=== PATIENT | female | born 1965 | race Caucasian/White ===

== ENCOUNTER 2016-11-06 04:30 | Emergency (ER) | payer SELFPAY ==
[~2016-11-06] VITALS: Ht 165.1 cm; Wt 75.0 kg
[2016-11-06 04:38] VITALS: BP 118/87; PULSE 97; RESP 20; TEMP 98; O2SAT 98
[2016-11-06] MEDS ORDERED: IBUP800T23 PO (04:56)
[2016-11-06 04:57] VITALS: BP 118/87; PULSE 97; RESP 18; TEMP 98; O2SAT 98
[2016-11-06] MEDS ORDERED: SODIUM CHLOR 0.9% 1000 ML INJ 1,000 ML IV ONE (05:15)
[2016-11-06] MEDS ORDERED: METOCLOPRAMIDE HCL 10 MG/2 ML VIAL IV PUSH ONE (05:15)
[2016-11-06] MEDS ORDERED: KETOROLAC TROMETHAMINE 30 MG/ML (IVP) VIAL IV PUSH ONE (05:15)
--- NOTE | 2016-11-06 05:17 | PD ---
HPI Chief Complaint: GI Complaint Time Seen by Provider: 05:06 Travel History International Travel<30 days: No Contact w/Intl Traveler<30days: No Traveled to known affect area: No History of Present Illness HPI 50-year-old female presents to the emergency department for one day of abdominal bloating and vomiting. No hematemesis no coffee-ground emesis no bilious emesis also no melena or hematochezia. Patient is status post abdominoplasty and hysterectomy. Patient rates discomfort as moderate to severe. Patient states she has irritable bowel syndrome and has had colonoscopy and upper endoscopy which revealed no source of her recurrent bloating. Patient states she is unable to tolerate oral hydration at this time. Patient is managed by a GI specialist in [place]. Patient reports that she is here due to working for the [employer]. Patient does not report any chest pain pleuritic pain or shortness of breath. Patient reports that she cannot take a complete breath because of her abdominal pain. Patient rates her pain 5/ 10 in intensity. No dietary indiscretion, no foreign travel, and no well water ingestion. PFSH Past Medical History Narrative Medical valvular heart disease, abdominoplasty, hysterectomy, IBS, cholecystectomy; alcohol use; nursing notes reviewed Arthritis: Yes Cardiovascular Problems: Yes (PULMONARY REGURGITATION) Diminished Hearing: No Immunizations Current: Yes Tetanus Vaccination: < 5 Years Influenza Vaccination: No ?: Not Dilation and Curettage (D&C): Yes Tubal Ligation: Yes Past Surgical History Abdominal Surgery: No Section: Yes Cholecystectomy: Yes (2008) Hysterectomy: Yes Social History Alcohol Use: Yes () Tobacco Use: No Substance Use: No Allergies-Medications (Allergen,Severity, Reaction): Coded Allergies: Contrast Media (Verified Allergy, Severe, Hives, 11/06/16) Zofran (Verified Adverse Reaction, Mild, Nausea/Vomiting, 11/06/16) Reported Meds & Prescriptions Reported Meds & Active Scripts Active Reported Ibuprofen 800 Mg Tab 800 Mg PO Q8H PRN Review of Systems Except as stated in HPI: all other systems reviewed are Neg General / Constitutional: No: Fever, Chills HENT: No: Congestion, Nosebleed Cardiovascular: No: Chest Pain or Discomfort Respiratory: No: Shortness of Breath, Orthopnea, Pleuritic Pain Gastrointestinal: Positive: Nausea, Vomiting, Abdominal Pain, No: Diarrhea Genitourinary: No: Dysuria, Flank Pain Musculoskeletal: No: Myalgias, Arthralgias, Edema Skin: No Rash, No Itching Neurologic: No: Weakness Psychiatric: Positive: Anxiety Hematologic/Lymphatic: No: Lymph Node Enlargement Physical Exam Narrative GENERAL: SKIN: Warm and dry. HEAD: Normocephalic. EYES: No scleral icterus. No injection or drainage. NECK: Supple, trachea midline. No JVD or lymphadenopathy. CARDIOVASCULAR: Regular rate and rhythm without murmurs, gallops, or rubs. RESPIRATORY: Breath sounds equal bilaterally. No accessory muscle use. GASTROINTESTINAL: Abdomen soft, non-tender, mildly distended. MUSCULOSKELETAL: No cyanosis, or edema. BACK: Nontender without obvious deformity. No CVA tenderness. Data Data Last Documented VS Vital Signs Date Time Temp Pulse Resp B/P Pulse Ox O2 Delivery O2 Flow Rate FiO2 11/06/16 06:58 18 11/06/16 06:18 83 123/62 100 Room Air 11/06/16 04:57 98.0 Orders Metoclopramide Inj (Reglan Inj) (11/06/16 05:15) Complete Blood Count With Diff (11/06/16 05:06) Comprehensive Metabolic Panel (11/06/16 05:06) Lipase (11/06/16 05:06) Urinalysis - C+S If Indicated (11/06/16 05:06) Ketorolac Inj (Toradol Inj) (11/06/16 05:15) Sodium Chlor 0.9% 1000 Ml Inj (Ns 1000 M (11/06/16 05:15) Ct Abd/Pel W/O Iv Contrast (11/06/16 ) Labs Laboratory Tests Test 11/06/16 05:30 White Blood Count 11.3 TH/MM3 Red Blood Count 4.15 MIL/MM3 Hemoglobin 13.1 GM/DL Hematocrit 37.4 % Mean Corpuscular Volume 90.2 FL Mean Corpuscular Hemoglobin 31.6 PG Mean Corpuscular Hemoglobin 35.0 % Concent Red Cell Distribution Width 12.3 % Platelet Count 246 TH/MM3 Mean Platelet Volume 8.2 FL Neutrophils (%) (Auto) 79.9 % Lymphocytes (%) (Auto) 15.0 % Monocytes (%) (Auto) 4.5 % Eosinophils (%) (Auto) 0.2 % Basophils (%) (Auto) 0.4 % Neutrophils # (Auto) 9.1 TH/MM3 Lymphocytes # (Auto) 1.7 TH/MM3 Monocytes # (Auto) 0.5 TH/MM3 Eosinophils # (Auto) 0.0 TH/MM3 Basophils # (Auto) 0.0 TH/MM3 CBC Comment DIFF FINAL Differential Comment Urine Color YELLOW Urine Turbidity CLEAR Urine pH 5.5 Urine Specific [place] 1.018 Urine Protein TRACE mg/dL Urine Glucose (UA) NEG mg/dL Urine Ketones NEG mg/dL Urine Occult Blood SMALL Urine Nitrite NEG Urine Bilirubin NEG Urine Leukocyte Esterase NEG Urine RBC 3-5 /hpf Urine WBC 3-5 /hpf Urine Squamous Epithelial 6-8 /hpf Cells Urine Bacteria OCC /hpf Microscopic Urinalysis Comment CULT NOT INDICATED Sodium Level 142 MEQ/L Potassium Level 3.9 MEQ/L Chloride Level 105 MEQ/L Carbon Dioxide Level 28.4 MEQ/L Anion Gap 9 MEQ/L Blood Urea Nitrogen 16 MG/DL Creatinine 0.97 MG/DL Estimat Glomerular Filtration 61 ML/MIN Rate Random Glucose 96 MG/DL Calcium Level 8.7 MG/DL Total Bilirubin 0.3 MG/DL Aspartate Amino Transf 13 U/L (AST/SGOT) Alanine Aminotransferase 31 U/L (ALT/SGPT) Alkaline Phosphatase 69 U/L Total Protein 7.7 GM/DL Albumin 3.6 GM/DL Lipase 150 U/L [facility] Medical Decision Making Medical Screen Exam Complete: Yes Emergency Medical Condition: Yes Medical Record Reviewed: Yes Interpretation(s) CBC & BMP Diagram 11/06/16 05:30 Vital Signs Date Time Temp Pulse Resp B/P Pulse Ox O2 Delivery O2 Flow Rate FiO2 11/06/16 06:58 18 11/06/16 06:18 83 18 123/62 100 Room Air 11/06/16 05:00 18 11/06/16 04:57 98.0 97 18 118/87 98 11/06/16 04:38 98.0 97 20 118/87 98 Differential Diagnosis abdominal pain, intestinal colic, bowel obstruction, diverticulitis, pancreatitis, appendicitis, uti, gastroenteritis Narrative Course IV access obtained specimens collected and sent for resulting imaging studies ordered lab values grossly wnl except mild leukocytosis and left shift; CT abd/pel pending; care signed over to Sammie Ye MD Nov 06, 2016 05:17
[2016-11-06 05:35] LABS: BLOOD, URINE SMALL (NEG); GLUCOSE,URINE NEG (NEG); KETONE, URINE NEG (NEG); NITRITE,URINE NEG (NEG); PH, URINE 5.5 (5.0-8.5)
[2016-11-06 05:37] LABS: AUTOMATED NEUTROPHIL # 9.1 TH/MM3 (1.8-7.7); BASOPHIL % 0.4 % (0.0-2.0); EOSINOPHIL % 0.2 % (0.0-4.0); HEMATOCRIT 37.4 % (35.0-46.0); HEMO FLAGS DIFF FINAL; LYMPHOCYTE # 1.7 TH/MM3 (1.0-4.8); MEAN CELL VOLUME 90.2 FL (80.0-100.0); MEAN CORPUSCULAR HEMOGLOBIN 31.6 PG (27.0-34.0); MONO % 4.5 % (0.0-8.0); NEUT % 79.9 % (16.0-70.0); PLATELET COUNT 246 TH/MM3 (150-450); RED BLOOD COUNT 4.15 MIL/MM3 (4.00-5.30); RED CELL DISTRIBUTION WIDTH 12.3 % (11.6-17.2); WHITE BLOOD COUNT 11.3 TH/MM3 (4.0-11.0)
[2016-11-06 05:40] LABS: URINE COLOR YELLOW (YELLW/STRAW)
[2016-11-06 05:41] LABS: BACTERIA, URINE OCC /hpf; COMMENT (UR) CULT NOT INDICATED; CULTURE IF INDICATED CULT NOT INDICATED
[2016-11-06 05:43] LABS: CHLORIDE 105 MEQ/L (98-107); POTASSIUM 3.9 MEQ/L (3.5-5.1); SODIUM (NA) 142 MEQ/L (136-145)
[2016-11-06 05:47] LABS: ANION GAP 9 MEQ/L (5-15); BICARBONATE 28.4 MEQ/L (21.0-32.0); BLOOD UREA NITROGEN 16 MG/DL (7-18)
[2016-11-06 05:50] LABS: ALT (GPT) 31 U/L (10-53); AST (GOT) 13 U/L (15-37); GLOMERULAR FILTRATION RATE 61 ML/MIN (>89)
[2016-11-06 05:51] LABS: TOTAL BILIRUBIN ADULT 0.3 MG/DL (0.2-1.0)
[2016-11-06 05:53] LABS: ALKALINE PHOSPHATASE 69 U/L (45-117)
[2016-11-06 06:18] VITALS: BP 123/62; PULSE 83; RESP 18; O2SAT 100
[2016-11-06 07:15] VITALS: BP 123/66; PULSE 69; RESP 14; O2SAT 100
[2016-11-06] MEDS ORDERED: BENT20TA PO (07:21)
[2016-11-06] MEDS ORDERED: REGL10TA5 PO (07:21)
--- NOTE | 2016-11-06 07:21 | PD ---
Data Data Last Documented VS Vital Signs Date Time Temp Pulse Resp B/P Pulse Ox O2 Delivery O2 Flow Rate FiO2 11/06/16 07:15 69 14 123/66 100 Room Air 11/06/16 04:57 98.0 Orders Metoclopramide Inj (Reglan Inj) (11/06/16 05:15) Complete Blood Count With Diff (11/06/16 05:06) Comprehensive Metabolic Panel (11/06/16 05:06) Lipase (11/06/16 05:06) Urinalysis - C+S If Indicated (11/06/16 05:06) Ketorolac Inj (Toradol Inj) (11/06/16 05:15) Sodium Chlor 0.9% 1000 Ml Inj (Ns 1000 M (11/06/16 05:15) Ct Abd/Pel W/O Iv Contrast (11/06/16 ) Labs Laboratory Tests Test 11/06/16 05:30 White Blood Count 11.3 TH/MM3 Red Blood Count 4.15 MIL/MM3 Hemoglobin 13.1 GM/DL Hematocrit 37.4 % Mean Corpuscular Volume 90.2 FL Mean Corpuscular Hemoglobin 31.6 PG Mean Corpuscular Hemoglobin 35.0 % Concent Red Cell Distribution Width 12.3 % Platelet Count 246 TH/MM3 Mean Platelet Volume 8.2 FL Neutrophils (%) (Auto) 79.9 % Lymphocytes (%) (Auto) 15.0 % Monocytes (%) (Auto) 4.5 % Eosinophils (%) (Auto) 0.2 % Basophils (%) (Auto) 0.4 % Neutrophils # (Auto) 9.1 TH/MM3 Lymphocytes # (Auto) 1.7 TH/MM3 Monocytes # (Auto) 0.5 TH/MM3 Eosinophils # (Auto) 0.0 TH/MM3 Basophils # (Auto) 0.0 TH/MM3 CBC Comment DIFF FINAL Differential Comment Urine Color YELLOW Urine Turbidity CLEAR Urine pH 5.5 Urine Specific [place] 1.018 Urine Protein TRACE mg/dL Urine Glucose (UA) NEG mg/dL Urine Ketones NEG mg/dL Urine Occult Blood SMALL Urine Nitrite NEG Urine Bilirubin NEG Urine Leukocyte Esterase NEG Urine RBC 3-5 /hpf Urine WBC 3-5 /hpf Urine Squamous Epithelial 6-8 /hpf Cells Urine Bacteria OCC /hpf Microscopic Urinalysis Comment CULT NOT INDICATED Sodium Level 142 MEQ/L Potassium Level 3.9 MEQ/L Chloride Level 105 MEQ/L Carbon Dioxide Level 28.4 MEQ/L Anion Gap 9 MEQ/L Blood Urea Nitrogen 16 MG/DL Creatinine 0.97 MG/DL Estimat Glomerular Filtration 61 ML/MIN Rate Random Glucose 96 MG/DL Calcium Level 8.7 MG/DL Total Bilirubin 0.3 MG/DL Aspartate Amino Transf 13 U/L (AST/SGOT) Alanine Aminotransferase 31 U/L (ALT/SGPT) Alkaline Phosphatase 69 U/L Total Protein 7.7 GM/DL Albumin 3.6 GM/DL Lipase 150 U/L [facility] Supervised Visit with ANURAG: No Narrative Course 50-year-old with a history of abdominal bloating, followed by GI in [place] without a clear etiology, presents one day of bloating vomiting and abdominal pain. States the vomiting abdominal pain are not typical for her. She does not typically take any medicines for her belly. She does take baking soda water periodically to help with the bloating. She was initially evaluated by Dr. Lan did sign out to to follow-up on her CT imaging. Abdominal surgical history significant for hysterectomy and cholecystectomy. Repeat exam, patient's sleeping in bed. Labs show: CBC remarkable for minimal leukocytosis. CMP is unremarkable. Lipase is normal. CT abdomen and pelvis: Focal abnormality identified a slight abdominal pain. Ovarian cyst. Moderate to severe hepatic steatosis. FINAL: Patient with abdominal bloating and some vomiting. Labs unremarkable. CT unremarkable. We will plan treatment with Bentyl, Zofran, outpatient follow- up with her big data lead. Diagnosis Primary Impression: Vomiting Additional Impression: Abdominal bloating Additional Instruction: Use Zofran as needed for nausea or vomiting. Use Bentyl as needed for abdominal cramping and bloating. Follow-up with your big data lead when you return home. Return to the emergency department for any worsening pain, vomiting, fevers, or any other new or worsening symptoms. Med/Other Pt SpecificInfo: Prescription(s) given Scripts Dicyclomine (Bentyl)20 Mg Tab20 Mg PO TID PRN (ABDOMINAL CRAMPING) #15 TAB Ref 0 Prov:Scott Arnold MD 11/06/16 Metoclopramide (Reglan)10 Mg Tab10 Mg PO QID PRN (VOMITING) #15 TAB Ref 0 Prov:Scott Arnold MD 11/06/16 Disposition: 01 DISCHARGE HOME Condition: Stable Scott Arnold MD Nov 06, 2016 07:21 Scott Arnold MD Nov 06, 2016 07:21
--- NOTE | 2016-11-06 07:33 | RADHPO ---
EXAM DATE/TIME: 11/06/2016 06:52 [facility] COMPARISON: No previous studies available for comparison. INDICATIONS : Epigastric pain. ORAL CONTRAST: No oral contrast ingested. RADIATION DOSE: 10.27 CTDIvol (mGy) MEDICAL HISTORY : None SURGICAL HISTORY : Hysterectomy. Cholecystectomy. section. ENCOUNTER: Initial ACUITY: 1 day PAIN SCALE: 5/10 LOCATION: Epigastric TECHNIQUE: Volumetric scanning of the abdomen and pelvis was performed. Using automated exposure control and ad justment of the mA and/or kV according to patient size, radiation dose was kept as low as reasonably achievable to obtain optimal diagnostic quality images. FINDINGS: LOWER LUNGS: The visualized lower lungs are clear. LIVER: Moderate to severe diffuse low density. No focal lesion is seen. Gallbladder is absent with multiple clips in the gallbladder fossa. There is no dilation of the biliary tree. SPLEEN: Normal size without lesion. PANCREAS: Within normal limits. KIDNEYS: Normal in size and shape. There is no mass, stone, or hydronephrosis. ADRENAL GLANDS: Within normal limits. VASCULAR: There is no aortic aneurysm. BOWEL/MESENTERY: The stomach, small bowel, and colon demonstrate no acute abnormality. There is no free intraperitone al air or fluid. Appendix is normal. ABDOMINAL WALL: There is a scar along the anterior abdominal wall near the midline related to prior or hyst erectomy. RETROPERITONEUM: There is no lymphadenopathy. BLADDER: No wall thickening or mass. REPRODUCTIVE: The uterus is absent. There are bilateral adnexal/ovarian cystic lesions measuring 2.4 cm on the righ t and 3.7 cm and the left. These are incompletely characterized on this examination but demonstrate n o complicating features. INGUINAL: There is no lymphadenopathy or hernia. MUSCULOSKELETAL: Within normal limits for patient age. CONCLUSION: 1. No abnormality is identified to explain the epigastric pain. No acute finding is seen. 2. There are bilateral ovarian cystic lesions measuring 3.7 cm and the left and 2.4 cm on the right. 3. Moderate to severe hepatic steatosis. Alex Manzano MD on November 06, 2016 at 7:27 Board Certified Radiologist. This report was verified electronically.
== END 2016-11-06 08:15 | disposition home or self-care (01) ==
LOC: PHED 04:30
DX: R11.2 Nausea with vomiting, unspecified (principal); R14.0 Abdominal distension (gaseous)
CPT/HCPCS: 74176; 80053; 81001; 83690; 85025; 96361; 96374; 96375; 99284; J1885; J2765; J7030